=== PATIENT | female | born 1980 | race Caucasian/White ===

== ENCOUNTER 2024-01-29 18:28 | Emergency (ER) | payer OTHER ==
[2024-01-29 18:41] VITALS: BP 106/69; PULSE 85; RESP 20; TEMP 97.6; BMI 23.9
[2024-01-29] MEDS ORDERED: PROCHLORPERAZINE INJECTION 10 MG/2 ML VIAL ONE (20:04)
[2024-01-29] MEDS: PROCHLORPERAZINE INJECTION 10 MG/2 ML VIAL IVPB ONE (20:09)
[2024-01-29] MEDS ORDERED: DEXAMETHASONE LIQUID 0.5 MG/5 ML PO ONE (20:50)
== END 2024-01-29 20:58 | disposition home or self-care (01) ==
LOC: JERFT 18:28
PROC: 3E033GC Introduction of Other Therapeutic Substance into Peripheral Vein, Percutaneous Approach (ICD-10-PCS; principal; 2024-01-29)
DX: R51.9 Headache, unspecified (principal); J02.9 Acute pharyngitis, unspecified; R50.9 Fever, unspecified; Z20.822 Contact with and (suspected) exposure to COVID-19
CPT/HCPCS: 0241U-QW; 87651; 99284-25